=== PATIENT | male | born 1965 | race Caucasian/White ===

== ENCOUNTER → 2021-10-19 | Outpatient (CLI) | payer BC ==
[2021-10-19 07:59] LABS: HEMATOCRIT 43.3 % (42.0-52.0); HEMOGLOBIN 15.2 g/dL (13.5-18.0); MEAN PLATELET VOLUME 9.5 fl (7.4-10.4); RED BLOOD COUNT 5.05 M/mm3 (4.20-5.60); RED CELL DISTRIBUTION WIDTH 12.9 % (11.5-14.5); WHITE BLOOD COUNT 4.7 K/mm3 (4.8-10.8)
[2021-10-19 08:22] LABS: POTASSIUM 4.3 mmol/L (3.5-5.1)
[2021-10-19 08:24] LABS: CALCIUM 9.6 mg/dL (8.3-10.5)
[2021-10-19 22:34] LABS: TESTOSTERONE 391 ng/dL (221-716)
== END ==
LOC: LAB 07:32
PROVIDERS: Family Medicine
DX: Z00.00 Encounter for general adult medical examination without abnormal findings (principal); Z12.5 Encounter for screening for malignant neoplasm of prostate; E29.1 Testicular hypofunction; E55.9 Vitamin D deficiency, unspecified; R79.89 Other specified abnormal findings of blood chemistry